=== PATIENT | female | born 1975 | race Caucasian/White ===

== ENCOUNTER → 2016-11-25 | Outpatient (CLI) | payer MEDICAID, BC ==
[2016-11-25 09:14] LABS: ALT 38 U/L (9-52); AST 17 U/L (14-36); Alkaline Phosphatase 71 U/L (38-126); Anion Gap 8 mmol/L; Blood Urea Nitrogen 13 mg/dL (7-17); Calcium 9.1 mg/dL (8.4-10.2); Carbon Dioxide 27 mmol/L (22-30); Chloride 106 mmol/L (98-107); Cholesterol 203 mg/dL (<200); Glucose 87 mg/dL (74-99); HDL Cholesterol 44 mg/dL (40-60); Non-African American GFR(MDRD) >60 (>60 ml/min/1.73 sqM); Potassium 4.4 mmol/L (3.5-5.1); Sodium 141 mmol/L (137-145); Total Bilirubin 0.3 mg/dL (0.2-1.3); Triglycerides 68 mg/dL (<150)
[2016-11-25 09:32] LABS: Total Protein 6.7 g/dL (6.3-8.2)
== END | disposition home or self-care (01) ==
LOC: LABWHC1 08:15
PROVIDERS: ATTEND Family Medicine
DX: E78.5 Hyperlipidemia, unspecified (principal); I10 Essential (primary) hypertension
CPT/HCPCS: 36415; 80053; 80061

== ENCOUNTER → 2016-11-25 | Outpatient (CLI) | payer MEDICAID, BC ==
[2016-11-25 08:53] LABS: Basophils % (A) 0 %; CH 31.2; CHCM 33.6; Eosinophils # (A) 0.2 k/uL (0-0.7); Eosinophils % (A) 3 %; HDW 2.37; HGB 14.4 gm/dL (11.4-16.0); Luc # (Auto) 0.08; Luc % (Auto) 1; Lymphocytes # (A) 1.8 k/uL (1.0-4.8); Lymphocytes % (A) 27 %; MCH 31.2 pg (25.0-35.0); MCHC 33.4 g/dL (31.0-37.0); MCV 93.3 fL (80.0-100.0); Mean Platelet Volume 7.8; Monocytes # (A) 0.3 k/uL (0-1.0); Monocytes % (A) 4 %; Neutrophils # (A) 4.2 k/uL (1.3-7.7); Neutrophils % (A) 64 %; RDW 13.3 % (11.5-15.5); WBC 6.5 k/uL (3.8-10.6)
== END | disposition home or self-care (01) ==
LOC: LABPAT 08:12
PROVIDERS: ATTEND Family Medicine
DX: Z01.812 Encounter for preprocedural laboratory examination (principal)
CPT/HCPCS: 85025

== ENCOUNTER 2016-12-02 05:52 | Day surgery (SDC) | payer MEDICAID, BC ==
[2016-11-25 11:34] VITALS: BMI 27.3
[~2016-12-02 05:52] MED LIST: DEXAMETHASONE SOD PHOSPHATE 10 MG/ML 1 ML VIAL IV ONE; LIDOCAINE 1% 20 ML VIAL (10MG/ML) FOR IV START INTRADERMA PRN; ONDANSETRON 4 MG/2 ML VIAL IVP ONE; SCOPOLAMINE 1.5MG/72HR PATCH TRANSDERM ONE; ceFAZolin 2 GM in SODIUM CHLORIDE 0.9% 100 ML IVPB ONE
[2016-12-02] MEDS: LACTATED RINGERS 1,000 ML IV SCH (06:48)
[2016-12-02] MEDS ORDERED: BUPIVACAINE (PF) 0.25% 30 ML VIAL SQ ONE ×2 (07:29→08:03)
--- NOTE | 2016-12-02 07:29 | P.HPOB ---
History of Present Illness H&P Date: 12/02/16 Chief Complaint: Menorrhagia: Failed NovaSure Patient is a 41-year-old female who underwent a NovaSure ablation for menorrhagia but has had no significant symptomatic relief. She reports that she has very heavy bleeding each cycle and it is severely limits her ability to function normally. The bleeding has gotten to the point where she cannot valves during her heaviest bleeding and she is therefore requesting a more permanent solution. Risks/benefits/alternatives to a robotic-assisted laparoscopic hysterectomy possible CONSTANCE possible BSO were discussed with the patient in detail. These did include but were not limited to damage to bladder , bowel, vascular injuries, nerve damage, vessel injuries, ureteral damage. Other than her NovaSure she has had no other abdominal surgeries. On physical exam vital signs are stable and afebrile. Heart regular, lungs clear, extremities without pain. Osteopathic exams unremarkable. Abdominal exam is unremarkable. Positive bowel sounds are noted. Pelvic exam is generally speaking unremarkable. Assessment menorrhagia failed ablation. Plan-da ender assisted hysterectomy Past Medical History Past Medical History: Asthma, Hyperlipidemia, Hypertension Additional Past Medical History / Comment(s): ASTHMA UNDER CONTROL History of Any Multi-Drug Resistant Organisms: None Reported Past Surgical History: Tubal Ligation, Uterine Ablation Additional Past Surgical History / Comment(s): SINUS SX X 3 Past Anesthesia/Blood Transfusion Reactions: Previous Problems w/ Anesthesia, Postoperative Nausea & Vomiting (PONV) Additional Past Anesthesia/Blood Transfusion Reaction / Comment(s): WOKE UP DURING ONE OF HER SINUS SURGERIES Smoking Status: Never smoker - Past Family History Mother Family Medical History: No Reported History Medications and Allergies Home Medications Medication Instructions Recorded Confirmed Type Atorvastatin [Lipitor] 10 mg PO DAILY 11/25/16 11/25/16 History Desvenlafaxine Succinate [Pristiq] 50 mg PO DAILY 11/25/16 11/25/16 History amLODIPine BESYLATE/BENAZEPRIL 1 each PO DAILY 11/25/16 11/25/16 History [Lotrel 5-10 mg Capsule] Allergies Allergy/AdvReac Type Severity Reaction Status Date / Time aspirin Allergy Anaphylaxis Verified 11/25/16 11:25 Exam Osteopathic Statement: *. No significant issues noted on an osteopathic structural exam other than those noted in the History and Physical/Consult. - Vital Signs Vital signs: Vital Signs Temp Pulse Resp BP Pulse Ox 12/02/16 06:23 97.5 F L 89 16 133/77 96
[2016-12-02] MEDS ORDERED: ONDANSETRON 4 MG/2 ML VIAL IVP PRN (08:51)
[2016-12-02] MEDS ORDERED: Acetaminophen-Codeine 300-30mg TAB PO PRN (08:51)
--- NOTE | 2016-12-02 08:58 | P.OP ---
Date of Procedure: 12/02/16 Preoperative Diagnosis: menorrhagia: Failed ablation Postoperative Diagnosis: Same Procedure(s) Performed: Robotic-assisted laparoscopic hysterectomy Implants: Anesthesia: TAMIKA Surgeon: Davey Yeboah Nuclear Equipment Sales Engineer #1: Minnie Marinelli Estimated Blood Loss (ml): 25 IV fluids (ml): 600 Urine output (ml): 250 Pathology: other (uterus and cervix) Condition: stable Disposition: floor Indications for Procedure: Operative Findings: no gross pathology Description of Procedure: Patient was taken to the operating suite where a general anesthetic was found to be adequate. She was prepped and draped in the normal sterile fashion and placed in the dorsal lithotomy position. Initially a weighted speculum was inserted into the vagina and the anterior lip of the cervix was identified and grasped with a single-tooth tenaculum. 2 sutures were placed at 3/9 hands clock position. Cervix was then dilated and sounded to 10 cm. Cup size with 3 cm. Lesli manipulator was then inserted without difficulty and Lowery catheter was placed and gloves were changed. Other instruments were removed from the vagina. Attention was then turned to the abdominal portion of the procedure where 2 mL of quarter percent Marcaine were injected 2 cm above the umbilicus. Through this anesthetic a 8 mm skin incision was made and through this incision with direct visualization the port and sleeve were inserted. Once peritoneal placement was assured gas was allowed to fully insufflate the abdomen and patient was then placed in a very steep Trendelenburg position. 2 lateral ports were then placed approximately 10 cm lateral to the umbilicus and then a fourth port and sleeve was inserted between the left lateral and the medial port. Camera port was then exchanged for a robotic port. Robot was then brought in and docked. With a scissor and the one arm and a [place] grasper in the 2 arm I did break scrub and go to the console. Uterus was then elevated and observations pelvis were made. Uterus is noted be slightly enlarged ovaries appeared normal. Initially the left utero-ovarian ligament was identified cauterized and cut broad ligament tissues were then cauterized and cut to the round ligament and round ligament was also cauterized and cut. Anterior and posterior leafs of the broad ligament were then developed slit skeletonization of vascularity could be made. Vasculature was then cauterized on the left and then undermining the bladder flap was done by using the Metzenbaum to incise the tissues but the [place] grasper elevated. This was carried across face of the uterus and the bladder flap was created. Once this was accomplished attention was turned to the right side of the uterus which in a similar fashion was developed. Balloon was then blown up in the Lesli manipulator and uterus was pushed all the way in cup was identified and anterior colpotomy was made. Once this was accomplished cheating head when necessary to maintain excellent hemostasis follow the couple around with the scissor until 3 and 60 was made. Once this was accomplished uterus was brought into the vagina to maintain pneumoperitoneum and hemostasis of the pedicles was assured. Once this was accomplished instrument's were exchanged for [employer]rological grasper and a make suture cut and using to OB lock suture the vaginal cuff was closed. Once this was fully accomplished pelvis was irrigated seeing no bleeding from the pedicles instruments were removed and gas was allowed to expel from the abdomen. 4 deep breaths were provided during this process and at this point I did do a cystoscopy to and good flow was noted from both ureteral jets and Dr. Marinelli did close the incisions subcuticularly. The remaining 8 mL of quarter percent Marcaine was then injected around these incisions. Sponge, lap, needle counts were all correct 2. Patient was taken to the recovery room in stable and satisfactory condition.
[2016-12-02] MEDS: HYDROmorphone 1 MG/ML 1 ML SYRINGE IVP PRN ×5 (09:27→09:43)
[2016-12-02] MEDS ORDERED: LACTATED RINGERS 1,000 ML IV ONE (09:43)
[2016-12-02] MEDS ORDERED: MEPERIDINE 50 MG/ML SYRINGE IVP ONE (09:47)
[2016-12-02] MEDS: Acetaminophen-Codeine 300-30mg TAB PO PRN ×2 (14:01→20:39)
[2016-12-03] MEDS: LACTATED RINGERS 1,000 ML IV SCH (00:14)
[2016-12-03] MEDS: Acetaminophen-Codeine 300-30mg TAB PO PRN ×2 (03:26→09:33)
[2016-12-03 08:47] VITALS: BP 122/71; PULSE 61; RESP 19; TEMP 97.6
--- NOTE | 2016-12-03 08:55 | P.DS ---
Providers Expected date of discharge: 12/03/16 Attending physician: Davey Yeboah Primary care physician: Wilfrido Morales [facility] Course: Patient is doing very well postop day 1. She is ambulating, voiding, and she is tolerating her diet. She is passed flatus. Vital signs are stable and afebrile. Heart regular, lungs clear, extremities without pain. Abdomen soft incisions are intact. Assessment postop day 1. Plan discharged home follow up with me in 1 day. Discharge structures thoroughly reviewed and prescription for Tylenol No. 3 has been provided. All the questions are answered for her prior to her discharge. Patient Condition at Discharge: Good Plan - Discharge Summary New Discharge Prescriptions: New Acetaminophen-Codeine 300-30mg [Tylenol #3] 1 tab PO Q4H PRN #30 tablet PRN Reason: Pain No Action Atorvastatin [Lipitor] 10 mg PO DAILY amLODIPine BESYLATE/BENAZEPRIL [Lotrel 5-10 mg Capsule] 1 each PO DAILY Desvenlafaxine Succinate [Pristiq] 50 mg PO DAILY Discharge Medication List Atorvastatin [Lipitor] 10 mg PO DAILY 11/25/16 [History] Desvenlafaxine Succinate [Pristiq] 50 mg PO DAILY 11/25/16 [History] amLODIPine BESYLATE/BENAZEPRIL [Lotrel 5-10 mg Capsule] 1 each PO DAILY [History] Acetaminophen-Codeine 300-30mg [Tylenol #3] 1 tab PO Q4H PRN #30 tablet [Rx] Follow up Appointment(s)/Referral(s): Davey Yeboah DO [Doctor of Osteopathic Medicine] - 1 Week Activity/Diet/Wound Care/Special Instructions: No heavy lifting, limit stairs and driving, and pelvic rest. If any high temperatures, heavy bleeding, or severe pain call my office
== END 2016-12-03 10:25 | disposition home or self-care (01) ==
LOC: OR 05:52 → 6PED 08:52 → OR 12-03 10:25
PROVIDERS: ATTEND Obstetrics & Gynecology
DX: D25.9 Leiomyoma of uterus, unspecified (principal); J45.909 Unspecified asthma, uncomplicated; E78.5 Hyperlipidemia, unspecified; I10 Essential (primary) hypertension; Z98.51 Tubal ligation status; Z79.899 Other long term (current) drug therapy; Z88.6 Allergy status to analgesic agent; N72 Inflammatory disease of cervix uteri
CPT/HCPCS: 81025; 86900; 86901; 86850; 88307; 58550; J1100; J2175; J0690; J2405; J1170

== ENCOUNTER → 2018-06-25 | Outpatient (CLI) | payer MEDICAID ==
[2018-06-25 16:31] LABS: Basophils % (A) 0 %; Eosinophils # (A) 0.1 k/uL (0-0.7); Eosinophils % (A) 1 %; HCT 46.7 % (34.0-46.0); HGB 15.1 gm/dL (11.4-16.0); Lymphocytes # (A) 1.9 k/uL (1.0-4.8); Lymphocytes % (A) 30 %; MCH 30.6 pg (25.0-35.0); MCHC 32.2 g/dL (31.0-37.0); Mean Platelet Volume 8.7; Monocytes # (A) 0.4 k/uL (0-1.0); Monocytes % (A) 6 %; Neutrophils # (A) 3.9 k/uL (1.3-7.7); Neutrophils % (A) 61 %; Platelet Count 184 k/uL (150-450); RBC 4.92 m/uL (3.80-5.40); RDW 13.4 % (11.5-15.5); WBC 6.4 k/uL (3.8-10.6)
[2018-06-25 16:43] LABS: Potassium 4.3 mmol/L (3.5-5.1)
[2018-06-25 16:44] LABS: ALT 37 U/L (9-52); AST 23 U/L (14-36); Albumin 4.7 g/dL (3.5-5.0); Alkaline Phosphatase 80 U/L (38-126); Anion Gap 11 mmol/L; Blood Urea Nitrogen 9 mg/dL (7-17); Calcium 9.6 mg/dL (8.4-10.2); Carbon Dioxide 25 mmol/L (22-30); Chloride 104 mmol/L (98-107); Cholesterol 237 mg/dL (<200); Glucose 94 mg/dL (74-99); HDL Cholesterol 37 mg/dL (40-60); LDL Cholesterol,Calculated 181 mg/dL (0-99); Sodium 140 mmol/L (137-145); Total Bilirubin 0.6 mg/dL (0.2-1.3); Total Protein 7.9 g/dL (6.3-8.2); Triglycerides 94 mg/dL (<150)
[2018-06-25 16:59] LABS: T4, Free (Free Thyroxine) 1.04 ng/dL (0.78-2.19)
[2018-06-25 23:16] LABS: Hemoglobin A1C 5.3 % (4.0-6.0)
[2018-06-25 23:42] LABS: Vitamin D 25 Hydroxy 25.4 ng/mL (30.0-100.0)
--- NOTE | 2018-06-26 09:13 | MM ---
Reason for exam: screening (asymptomatic). Last mammogram was performed 6 years and 2 months ago. History: Family history of breast cancer in maternal aunt at age 40 and breast cancer in maternal grandmother at age 40. Physical Findings: A clinical breast exam by your physician is recommended on an annual basis and results should be correlated with mammographic findings. MG 3D Screening Mammo W/Cad Bilateral CC and MLO view(s) were taken. Prior study comparison: April 21, 2012, bilateral digital screening mammo w/CAD. August 26, 2006, bilateral screening mammogram w/CAD. The breast tissue is heterogeneously dense. This may lower the sensitivity of mammography. No suspicious abnormality. No significant changes when compared with prior studies. ASSESSMENT: Negative, BI-RAD 1 RECOMMENDATION: Routine screening mammogram of both breasts in 1 year.
== END | disposition home or self-care (01) ==
LOC: RADMAMWWP 14:41
PROVIDERS: ATTEND Family Medicine
DX: Z12.31 Encounter for screening mammogram for malignant neoplasm of breast (principal); I10 Essential (primary) hypertension; Z00.00 Encounter for general adult medical examination without abnormal findings
CPT/HCPCS: 77063; 77067; 80053; 80061; 82306; 82607; 83036; 84439; 84443; 85025

== ENCOUNTER 2018-06-27 15:05 | Inpatient (IN) | payer MEDICAID ==
--- NOTE | 2018-06-27 16:02 | ED ---
General Adult HPI - General Chief complaint: Psychiatric Symptoms Stated complaint: Mental Health Time Seen by Provider: 06/27/18 15:31 Source: patient, RN notes reviewed Mode of arrival: ambulatory Limitations: no limitations - History of Present Illness Initial comments: Patient is a pleasant 43-year-old female presenting to the emergency Department with friends with complaints of depression and suicidal thoughts. Patient recently filed for divorce and is having depression regarding this. Patient has had some suicidal thoughts with the past few days. Patient was drinking with friends last night and took some of her friend's medication. This includes Mirapex and Celexa and Ambien. Patient is unclear exactly how many. Patient did not feel well this morning. Patient is feeling better at this point. No street drug use. No physical complaints. No hallucinations. No homicidal thoughts. - Related Data Home Medications Medication Instructions Recorded Confirmed Atorvastatin [Lipitor] 10 mg PO DAILY 11/25/16 12/02/16 Desvenlafaxine Succinate [Pristiq] 50 mg PO DAILY 11/25/16 12/02/16 amLODIPine BESYLATE/BENAZEPRIL 1 each PO DAILY 11/25/16 12/02/16 [Lotrel 5-10 mg Capsule] Previous Rx's Medication Instructions Recorded Acetaminophen-Codeine 300-30mg 1 tab PO Q4H PRN #30 tablet 12/03/16 [Tylenol #3] Allergies Allergy/AdvReac Type Severity Reaction Status Date / Time aspirin Allergy Anaphylaxis Verified 06/27/18 15:23 Review of Systems ROS Statement: Those systems with pertinent positive or pertinent negative responses have been documented in the HPI. ROS Other: All systems not noted in ROS Statement are negative. Constitutional: Denies: fever Eyes: Denies: eye pain ENT: Denies: ear pain Respiratory: Denies: cough Cardiovascular: Denies: chest pain Endocrine: Denies: fatigue Gastrointestinal: Denies: abdominal pain Genitourinary: Denies: dysuria Musculoskeletal: Denies: back pain Skin: Denies: rash Neurological: Denies: weakness Psychiatric: Reports: depression, suicidal thoughts Past Medical History Past Medical History: No Reported History History of Any Multi-Drug Resistant Organisms: None Reported Past Surgical History: Ablation, Hysterectomy Additional Past Surgical History / Comment(s): sinus sugery Past Psychological History: Anxiety Smoking Status: Never smoker Past Alcohol Use History: Occasional Past Drug Use History: None Reported General Exam Limitations: no limitations General appearance: alert, in no apparent distress Head exam: Present: atraumatic Eye exam: Present: normal appearance, PERRL, EOMI. Absent: nystagmus ENT exam: Present: normal oropharynx Neck exam: Present: normal inspection Respiratory exam: Present: normal lung sounds bilaterally Cardiovascular Exam: Present: regular rate, normal rhythm GI/Abdominal exam: Present: soft. Absent: tenderness Extremities exam: Present: normal inspection Neurological exam: Present: alert. Absent: motor sensory deficit Psychiatric exam: Present: depressed Skin exam: Present: normal color. Absent: rash Course Vital Signs 06/27/18 06/27/18 06/27/18 15:18 16:31 17:49 Temperature 97.9 F 98.5 F Pulse Rate 111 H 105 H 92 Respiratory 18 18 18 Rate Blood Pressure 137/82 141/90 126/84 O2 Sat by Pulse 97 98 98 Oximetry EKG Findings - EKG Comments: EKG Findings:: Normal sinus rhythm and 99. ID 132. QRS 82. QT 340. QTc 436. Normal axis. Normal QRS. No acute ST change. Medical Decision Making - Medical Decision Making Mental health services did see patient with plans for admission. - Lab Data Result diagrams: 06/27/18 16:33 06/27/18 16:33 Lab Results 06/27/18 06/27/18 06/27/18 Range/Units 16:33 16:33 16:33 WBC 13.3 H (3.8-10.6) k/uL RBC 4.65 (3.80-5.40) m/uL Hgb 14.7 (11.4-16.0) gm/dL Hct 42.6 (34.0-46.0) % MCV 91.6 (80.0-100.0) fL MCH 31.7 (25.0-35.0) pg MCHC 34.6 (31.0-37.0) g/dL RDW 13.2 (11.5-15.5) % Plt Count 190 (150-450) k/uL Neutrophils % 86 % Lymphocytes % 8 % Monocytes % 3 % Eosinophils % 2 % Basophils % 0 % Neutrophils # 11.4 H (1.3-7.7) k/uL Lymphocytes # 1.1 (1.0-4.8) k/uL Monocytes # 0.5 (0-1.0) k/uL Eosinophils # 0.2 (0-0.7) k/uL Basophils # 0.0 (0-0.2) k/uL PT 10.5 (9.0-12.0) sec INR 1.0 (<1.2) APTT 22.6 (22.0-30.0) sec Sodium 140 (137-145) mmol/L Potassium 4.4 (3.5-5.1) mmol/L Chloride 105 (98-107) mmol/L Carbon Dioxide 24 (22-30) mmol/L Anion Gap 11 mmol/L BUN 7 (7-17) mg/dL Creatinine 0.62 (0.52-1.04) mg/dL Est GFR (CKD-EPI)AfAm >90 (>60 ml/min/1.73 sqM) Est GFR (CKD-EPI)NonAf >90 (>60 ml/min/1.73 sqM) Glucose 109 H (74-99) mg/dL Calcium 9.7 (8.4-10.2) mg/dL Total Bilirubin 0.8 (0.2-1.3) mg/dL AST 18 (14-36) U/L ALT 39 (9-52) U/L Alkaline Phosphatase 82 (38-126) U/L Total Protein 7.4 (6.3-8.2) g/dL Albumin 4.5 (3.5-5.0) g/dL Salicylates <1.0 mg/dL Acetaminophen <10.0 ug/mL Serum Alcohol <10 mg/dL Disposition Clinical Impression: Depression, Suicidal ideation Disposition: TRANSFER TO PSYCH HOSP/UNIT Is patient prescribed a controlled substance at d/c from ED?: No Referrals: Wilfrido Morales DO [Primary Care Provider] - 1-2 days Decision Time: 18:30
[2018-06-27 16:53] LABS: Basophils % (A) 0 %; Eosinophils # (A) 0.2 k/uL (0-0.7); Eosinophils % (A) 2 %; HCT 42.6 % (34.0-46.0); HGB 14.7 gm/dL (11.4-16.0); Lymphocytes # (A) 1.1 k/uL (1.0-4.8); Lymphocytes % (A) 8 %; MCH 31.7 pg (25.0-35.0); MCHC 34.6 g/dL (31.0-37.0); MCV 91.6 fL (80.0-100.0); Mean Platelet Volume 8.2; Monocytes # (A) 0.5 k/uL (0-1.0); Monocytes % (A) 3 %; Neutrophils # (A) 11.4 k/uL (1.3-7.7); Neutrophils % (A) 86 %; Platelet Count 190 k/uL (150-450); RBC 4.65 m/uL (3.80-5.40); RDW 13.2 % (11.5-15.5); WBC 13.3 k/uL (3.8-10.6)
[2018-06-27 17:03] LABS: Partial Thromboplastin Time 22.6 sec (22.0-30.0); Prothrombin Time 10.5 sec (9.0-12.0)
[2018-06-27 17:07] LABS: ALT 39 U/L (9-52); AST 18 U/L (14-36); Acetaminophen <10.0 ug/mL; Albumin 4.5 g/dL (3.5-5.0); Alcohol <10 mg/dL; Alkaline Phosphatase 82 U/L (38-126); Anion Gap 11 mmol/L; Blood Urea Nitrogen 7 mg/dL (7-17); Calcium 9.7 mg/dL (8.4-10.2); Carbon Dioxide 24 mmol/L (22-30); Chloride 105 mmol/L (98-107); Glucose 109 mg/dL (74-99); Potassium 4.4 mmol/L (3.5-5.1); Salicylate <1.0 mg/dL; Sodium 140 mmol/L (137-145); Total Bilirubin 0.8 mg/dL (0.2-1.3); Total Protein 7.4 g/dL (6.3-8.2)
[2018-06-28] MEDS ORDERED: LORazepam 1 MG TAB PO PRN (01:25)
[2018-06-28] MEDS ORDERED: ZIPRASIDONE 20 MG VIAL IM PRN (01:25)
[2018-06-28] MEDS ORDERED: MAGNESIUM HYDROXIDE 2,400 MG/10 ML CUP PO PRN (01:25)
[2018-06-28] MEDS ORDERED: MAG HYDROX/AL HYDROX/SIMETH 30 ML CUP PO PRN (01:25)
[2018-06-28] MEDS ORDERED: ACETAMINOPHEN TAB 325 MG TAB PO PRN (01:25)
[2018-06-28 04:30] VITALS: BMI 28.5
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
--- NOTE | 2018-06-28 13:23 | P.CON ---
Consult Note - . Consult date: 06/28/18 Assessment/Plan:: Reason for consultation-advise regarding hypertension and hyperlipidemia History of present illness This is a very pleasant 43-year-old female with a past paresis significant for depression, GERD, she said that she had hypertension before but she's not taking medications any more as a blood pressure has stabilized. She also has a history of hyperlipidemia and not the any medications for that. She is admitted to the psychiatric unit for intentional overdose of 75 pulse of Ambien and Celexa and Ativan. Her life. Patient very tearful at the time examination. She has some family situations and marital conflicts a and she is stressed about it. She otherwise does not complain of any chest pain, racing heart, no abdominal pain, nausea and vomiting, or diarrhea constipation, no tingling numbness on in the extremities, no itch no rash. She does not complain of any lightheadedness no dizziness, and no itch or rash. Past medical history - History of hypertension but normotensive now not on any medications - History of hyperlipidemia - History of depression - History of JEANNA Past surgical history - Hysterectomy Family history - Noncontributory Social history - No smoking - Drinks alcohol socially on weekends - No history of drug abuse Physical exam Vitals-temperature 98.2 pulse 94 blood pressure 136/83 respiration 16 HEENT-head atraumatic normocephalic PERRLA no pallor no icterus, no pain or discharge from ear nose Throat-no erythema no exudate Neck-no JVD, no neck enlargement, no thyroid enlargement CVS-S1-S2 positive. Tachycardic Respiration-normal breath sounds are equally Abdomen-soft nontender bowel sounds present Axlbi-[id number]-[id number] nerves 2 -12 intact, reflexes 2 positive all extremities, strength of a postural Ixodes Extremities-no edema pulses positive Impression - Suicide intent - Depression and anxiety - History of hypertension now normotensive - History of hyperlipidemia Plan - Patient is admitted under psychiatric unit - Patient seems VITALLY stable is now including a blood pressure - We will continue to monitor the blood pressure and if high, will need to evaluate her for possible blood pressure medications - Monitor the patient for now - Outpatient workup for hyperlipidemia - We will follow the patient has and when needed
[2018-06-28] MEDS: FLUoxetine HCL 20 MG CAP PO SCH (13:39)
[2018-06-28] MEDS: busPIRone HCl 5 MG TAB PO SCH (22:34)
[2018-06-29] MEDS: FLUoxetine HCL 20 MG CAP PO SCH (08:22)
[2018-06-29] MEDS: busPIRone HCl 5 MG TAB PO SCH (08:22)
[2018-06-29 09:52] LABS: Albumin 4.2 g/dL (3.5-5.0); Bilirubin, Delta 0.2 mg/dL (0.0-0.2); Bilirubin,Unconjugated 0.4 mg/dL (0.0-1.1); Total Bilirubin 0.6 mg/dL (0.2-1.3)
[2018-06-29 12:15] LABS: Hemoglobin A1C 5.4 % (4.0-6.0)
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
[2018-06-30] MEDS: FLUoxetine HCL 10 MG CAP PO SCH (09:33)
[2018-07-01 07:04] VITALS: BP 113/52; PULSE 52; RESP 18; TEMP 97.7
[2018-07-01] MEDS: FLUoxetine HCL 10 MG CAP PO SCH (08:12)
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
== END 2018-07-01 12:42 | disposition home or self-care (01) | DRG 885 ==
LOC: EC 15:05 → 3MHU 20:20
PROVIDERS: ADMIT Psychiatry & Neurology Psychiatry; ATTEND Psychiatry & Neurology Psychiatry
DX: F33.2 Major depressive disorder, recurrent severe without psychotic features (principal); E78.5 Hyperlipidemia, unspecified; F41.1 Generalized anxiety disorder; I10 Essential (primary) hypertension; K21.9 Gastro-esophageal reflux disease without esophagitis; T42.4X2A Poisoning by benzodiazepines, intentional self-harm, initial encounter; T42.6X2A Poisoning by other antiepileptic and sedative-hypnotic drugs, intentional self-harm, initial encounter; Z90.710 Acquired absence of both cervix and uterus; Z63.5 Disruption of family by separation and divorce; Z79.899 Other long term (current) drug therapy; Z88.6 Allergy status to analgesic agent
CPT/HCPCS: 36415; 80053; 80061; 80076; 80320; 82075; 83036; 83520; 84443; 85025; 85610; 85730; 93005; 99285

== ENCOUNTER → 2020-05-19 | Outpatient (CLI) | payer MEDICAID ==
--- NOTE | 2020-05-23 08:50 | MM ---
Reason for exam: screening (asymptomatic). Last mammogram was performed 1 year and 11 months ago. History: Family history of breast cancer in maternal aunt at age 40 and breast cancer in maternal grandmother at age 40. Physical Findings: A clinical breast exam by your physician is recommended on an annual basis and results should be correlated with mammographic findings. MG 3D Screening Mammo W/Cad Bilateral CC and MLO view(s) were taken. Prior study comparison: June 25, 2018, bilateral MG 3d screening mammo w/cad. The breast tissue is heterogeneously dense. This may lower the sensitivity of mammography. No significant changes when compared with prior studies. ASSESSMENT: Negative, BI-RAD 1 RECOMMENDATION: Routine screening mammogram of both breasts in 1 year.
== END | disposition home or self-care (01) ==
LOC: RADMAMWWP 13:48
PROVIDERS: ATTEND Family Medicine
DX: Z12.31 Encounter for screening mammogram for malignant neoplasm of breast (principal)
CPT/HCPCS: 77063; 77067

== ENCOUNTER → 2020-11-10 | Outpatient (CLI) | payer MEDICAID ==
--- NOTE | 2020-11-10 12:52 | MM ---
Reason for exam: clinical finding. Last mammogram was performed 6 months ago. History: Family history of breast cancer in maternal aunt at age 40 and breast cancer in maternal grandmother at age 40. Took hormonal contraceptives for 10 years. Physical Findings: Nurse Summary: redness and thickening 3-6 o'clock left breast x 5 days (nurse marlen). MG 3D Diag Mammo W/Cad LUCINA Bilateral CC and MLO view(s) were taken. Prior study comparison: May 19, 2020, bilateral MG 3d screening mammo w/cad. June 25, 2018, bilateral MG 3d screening mammo w/cad. Left increased parenchymal focal asymmetry. No discrete nodule or mass. Recommend left ultrasound. These results were verbally communicated with the patient and result sheet given to the patient on 11/10/20. ASSESSMENT: Incomplete: need additional imaging evaluation, BI-RAD 0 RECOMMENDATION: Ultrasound of the left breast.
--- NOTE | 2020-11-10 12:57 | USB ---
Reason for exam: additional evaluation requested from abnormal screening. History: Family history of breast cancer in maternal aunt at age 40 and breast cancer in maternal grandmother at age 40. Took hormonal contraceptives for 10 years. US Breast LT Left complete breast ultrasound includes all four quadrants, the retroareolar region and axilla. Finding demonstrates a 3mm lymph node at 3 o'clock, likely reactive intramammary lymph node, 15 x 5 x 12mm oval, mixed lesion at 3 o'clock, fibrocystic change, probably benign, benign appearing duct ectasia at the posterior nipple, a 6mm and 11mm oval lymph node at the axilla tail, probably reactive lymph node. These results were verbally communicated with the patient and result sheet given to the patient on 11/10/20. ASSESSMENT: Probably benign, BI-RAD 3 RECOMMENDATION: Follow-up diagnostic mammogram and ultrasound of the left breast in 1 month.
== END | disposition home or self-care (01) ==
LOC: RADMAMWWP 10:54
PROVIDERS: ATTEND Obstetrics & Gynecology
DX: N64.4 Mastodynia (principal)
CPT/HCPCS: 77062; 77066

== ENCOUNTER → 2021-06-29 | Outpatient (CLI) | payer MEDICAID ==
--- NOTE | 2021-06-30 18:59 | US ---
EXAMINATION TYPE: US transvaginal DATE OF EXAM: 06/29/2021 COMPARISON: NONE CLINICAL HISTORY: Vaginal bleeding x 1 week, history of hysterectomy TECHNIQUE: Transvaginal exam only per ordering physician Date of LMP: 6 years ago EXAM MEASUREMENTS: Right Ovary: 2.1 x 1.9 x 1.9 cm Left Ovary: 2.8 x 1.9 x 1.8 cm 1. Uterus: Nonvisualized 2. Right Ovary: wnl 3. Left Ovary: 1.9 x 1.2 x 1.7cm hypoechoic area 4. Bilateral Adnexa: wnl 5. Posterior cul-de-sac: small amount of fluid IMPRESSION: 1. Surgically absent uterus. 2. No adnexal mass seen. 3. Hypoechoic mildly thick walled cyst in the left ovary differential would include a corpus luteum o r hemorrhagic cyst. Repeat Ultrasound in 2-3 months may be beneficial.
== END | disposition home or self-care (01) ==
LOC: RADUSWWP 15:24
PROVIDERS: ATTEND Obstetrics & Gynecology
DX: N93.9 Abnormal uterine and vaginal bleeding, unspecified (principal); Z90.710 Acquired absence of both cervix and uterus
CPT/HCPCS: 76830

== ENCOUNTER 2021-10-29 18:27 | Emergency (ER) | payer MEDICAID ==
[2021-10-29 18:43] VITALS: RESP 18; TEMP 99.9
[2021-10-29] MEDS ORDERED: ONDANSETRON ODT 4 MG TAB PO STA (19:07)
[2021-10-29] MEDS ORDERED: ACETAMINOPHEN TAB 500 MG TAB PO STA (19:07)
--- NOTE | 2021-10-29 19:11 | ED ---
ENT HPI - General Chief complaint: ENT Stated complaint: Covid symptoms Time Seen by Provider: 10/29/21 19:00 Source: patient, family, RN notes reviewed Mode of arrival: wheelchair Limitations: no limitations - History of Present Illness Initial comments: This is a 46-year-old female who presents to the emergency Department with coughing, congestion, chills, and body aches. Symptoms began this morning. States that her boyfriend tested positive for COVID yesterday. She does have a history of asthma, however she is not currently taking any medications and denies any associated shortness of breath. She has not checked her temperature, however she does have chills. If she tests positive, she requests rx for Paxlovid. Patient is very restless in the room, and states that she is also starting to become nauseous. Denies any sore throat, dyspnea, chest pain, palpitations, abdominal pain, vomiting, diarrhea, back pain, or headaches. MD complaint: other (cough, congestion, chills, body aches) - Related Data Previous Rx's Medication Instructions Recorded FLUoxetine HCL [PROzac] 30 mg PO DAILY 30 Days #90 cap 07/01/18 Albuterol Sulfate [Proair Hfa] 1 - 2 puff INHALATION Q6HR PRN 10/29/21 #8.5 gm Nirmatrelvir/Ritonavir [Paxlovid 1 each PO BID 5 Days #10 tab 10/29/21 2X150 mg-100 mg (Eua)] Allergies Allergy/AdvReac Type Severity Reaction Status Date / Time aspirin Allergy Anaphylaxis Verified 11/10/20 11:39 Review of Systems ROS Statement: Those systems with pertinent positive or pertinent negative responses have been documented in the HPI. ROS Other: All systems not noted in ROS Statement are negative. Past Medical History Past Medical History: Asthma Additional Past Medical History / Comment(s): Pt states she has a history of asthma but "I haven't been on medications or an inhaler in years" History of Any Multi-Drug Resistant Organisms: None Reported Past Surgical History: Ablation, Hysterectomy Additional Past Surgical History / Comment(s): sinus sugery Past Anesthesia/Blood Transfusion Reactions: No Reported Reaction Past Psychological History: Anxiety Smoking Status: Never smoker Past Alcohol Use History: Occasional Past Drug Use History: None Reported - Past Family History Mother Family Medical History: Cancer Father Family Medical History: Asthma General Exam Limitations: no limitations General appearance: alert, in distress Head exam: Present: atraumatic, normocephalic, normal inspection ENT exam: Present: normal exam, mucous membranes moist, TM's normal bilaterally, normal external ear exam Neck exam: Present: normal inspection. Absent: tenderness, meningismus, lymphadenopathy Respiratory exam: Present: normal lung sounds bilaterally. Absent: respiratory distress, wheezes, rales, rhonchi, stridor Cardiovascular Exam: Present: regular rate, normal rhythm, normal heart sounds. Absent: systolic murmur, diastolic murmur, rubs, gallop, clicks Neurological exam: Present: alert, oriented X3, CN II-XII intact Psychiatric exam: Present: normal affect, normal mood Skin exam: Present: warm, dry, intact, normal color. Absent: rash Course Vital Signs 10/29/21 10/29/21 18:41 20:28 Temperature 99.9 F H Pulse Rate 111 H 95 Respiratory 18 18 Rate Blood Pressure 133/81 119/69 O2 Sat by Pulse 98 97 Oximetry Medical Decision Making - Medical Decision Making This is a 46-year-old female who presents to the emergency department for chills, body aches, and upper respiratory symptoms. Patient positive for COVID- 19. Tylenol administered in the emergency department for a temperature of 99.9F. Zofran also provided for nausea. Rx for Paxlovid and albuterol inhaler sent to the pharmacy. Instructed her to quarantine for 5 days and practice extra precautions for an additional 5 days, including always wearing a mask around others and avoiding travel. Return precautions reviewed in depth, the patient is instructed to return to the emergency department with any new, worsening, or concerning symptoms. Patient verbalized understanding. This case was discussed in detail with the attending ED physician. Presentation, findings, and treatment plan discussed in detail as well. - Lab Data Lab Results 10/29/21 10/29/21 Range/Units 19:18 19:18 Coronavirus (PCR) Detected A (Not Detectd) Influenza Type A RNA Not Detected (Not Detectd) Influenza Type B (PCR) Not Detected (Not Detectd) Disposition Clinical Impression: COVID-19 Disposition: HOME SELF-CARE Instructions (If sedation given, give patient instructions): Coronavirus Disease 2019 (COVID-19), How to Recover from COVID-19 at Home (ED) Additional Instructions: Return to the emergency department with any new, worsening, or concerning symptoms. Take the Paxlovid as prescribed for 5 days. Quarantine for 5 days and practice extra precautions for an additional 5 days, including always wearing a mask around others and avoiding travel. Prescriptions: Nirmatrelvir/Ritonavir [Paxlovid 2X150 mg-100 mg (Eua)] 1 each PO BID 5 Days #10 tab Albuterol Sulfate [Proair Hfa] 1 - 2 puff INHALATION Q6HR PRN #8.5 gm PRN Reason: Shortness Of Breath Is patient prescribed a controlled substance at d/c from ED?: No Referrals: Wilfrido Morales DO [Primary Care Provider] - 1-2 days
[2021-10-29 20:28] VITALS: BP 119/69; PULSE 95
== END 2021-10-29 20:40 | disposition home or self-care (01) ==
LOC: EC 18:27
DX: U07.1 COVID-19 (principal); J45.909 Unspecified asthma, uncomplicated; Z88.6 Allergy status to analgesic agent
CPT/HCPCS: 87502; 87635

== ENCOUNTER → 2023-02-28 | Outpatient (CLI) | payer MEDICAID ==
--- NOTE | 2023-03-03 01:46 | MM ---
Reason for Exam: Screening (asymptomatic). Last mammogram was performed 2 year(s) and 3 month(s) ago. Patient History: Menarche at age 15. First Full-Term at age 26. Hysterectomy at age 40. Patient used Hormonal Contraceptives for 10 years. Maternal grandmother had breast cancer, age 40. Maternal aunt had breast cancer, age 40. Risk Values: Reny 5 year model risk: 0.7%. NCI Lifetime model risk: 8.6%. Prior Study Comparison: 06/25/2018 Bilateral Screening Mammogram, [facility]. 05/19/2020 Bilateral Screening Mammogram, [facility]. 11/10/2020 Bilateral Diagnostic Mammogram, [facility]. Tissue Density: The breast tissue is heterogeneously dense. This may lower the sensitivity of mammography. Findings: Analyzed By CAD. There is no suspicious group of microcalcifications or new suspicious mass in either breast. Overall Assessment: Negative, BI-RAD 1 Management: Screening Mammogram of both breasts in 1 year. . Patient should continue monthly self-breast exams. A clinical breast exam by your physician is recommended on an annual basis. This exam should not preclude additional follow-up of suspicious palpable abnormalities. Note on Reny scores and lifetime risk: 1. A Reny score greater than 3% is considered moderate risk. If this is the case, consider specialist referral to assess eligibility for a risk reducing agent. 2. If overall lifetime risk for the development of breast cancer is 20% or higher, the patient may qualify for future screening with alternating mammogram and breast MRI. Electronically signed and approved by: Tea Mendoza M.D. Radiologist
== END | disposition home or self-care (01) ==
LOC: RADMAMWWP 06:49
PROVIDERS: ATTEND Obstetrics & Gynecology
DX: Z12.31 Encounter for screening mammogram for malignant neoplasm of breast (principal); Z80.3 Family history of malignant neoplasm of breast
CPT/HCPCS: 77063; 77067

== ENCOUNTER → 2024-06-14 | Outpatient (CLI) | payer BC ==
--- NOTE | 2024-06-14 09:53 | CT ---
EXAMINATION TYPE: CT sinus wo con CT DLP: 622.3 mGycm, Automated exposure control for dose reduction was used. DATE OF EXAM: 06/14/2024 9:38 AM COMPARISON: None. CLINICAL INDICATION:Female, 49 years old with history of J32.4 SINUSITIS; PHH, sinusitis CONTRAST: None. TECHNIQUE: Multiple thin axial images were obtained through the paranasal sinuses without the use of IV contrast. Additional coronal and sagittal reformatted images were submitted for evaluation. FINDINGS: Frontal sinuses: Normally developed. Moderate left and mild mucosal thickening with hyperdensity comp onents. Frontal Recess: Opacified bilaterally Maxillary Sinuses: Normally developed. Near complete opacification of the bilateral maxilla sinuses w ith surrounding hyperostosis. Internal hyperdensity components. Maxillary Infundibula([facility]): Completely opacified bilaterally Ethmoid sinuses: Normally developed. Nearly completely opacified bilaterally with hyperdensity compon ents. Ethmoidal notch: Supraorbital pneumatization is identified. Sphenoid sinuses: Normally developed. Nearly completely opacified bilaterally with hyperdensity compo nents. There is sellar sphenoid sinus pneumatization without evidence of dehiscence. No dehiscence o f carotid canal. No evidence of optic nerve dehiscence within the sphenoid sinus. No evidence of Onod i cells. Sphenoethmoidal recesses: Opacified bilaterally. Nasal septum: Within normal limits.. Nasal Turbinates: Within normal limits. . Mastoid air cells & middle ears: The air cells are clear. The middle ears are grossly unremarkable. C erumen within the right external auditory canal. Modified Soft tissues & Brain: Partially seen without gross abnormality. Globes are intact. Other: Cribriform plate demonstrates symmetric Keros classification type 2 cribriform plate. No evidence of bony dehiscence of skull base. Lamina papyracea is intact without evidence of remote orbital fracture or orbital prolapse into the e thmoid sinus. Left palatine tonsilliths. IMPRESSION: 1. Findings of diffuse severe chronic mucosal sinus disease with hyperdense sinus opacification. Etio logies include fungal sinus disease versus inspissated secretions versus less likely hemorrhage. 2. The ostiomeatal units, frontonasal and sphenoethmoidal recesses are opacified. [facility], , 06/14/2024 9:51 AM
== END | disposition home or self-care (01) ==
LOC: RADCTMAIN 09:15
PROVIDERS: ATTEND Internal Medicine Critical Care Medicine
DX: J32.4 Chronic pansinusitis (principal); J34.89 Other specified disorders of nose and nasal sinuses
CPT/HCPCS: 70486

== ENCOUNTER → 2024-08-16 | Outpatient (CLI) | payer BC ==
--- NOTE | 2024-08-16 16:55 | MM ---
Reason for Exam: Screening (asymptomatic). Last mammogram was performed 1 year(s) and 6 month(s) ago. Patient History: Menarche at age 15. First Full-Term at age 26. Hysterectomy at age 40. Patient has history of breast feeding. Patient used Hormonal Contraceptives for 10 years. Maternal grandmother had breast cancer, age 40. Maternal aunt had breast cancer, age 40. Risk Values: Reny 5 year model risk: 0.8%. NCI Lifetime model risk: 8.4%. Prior Study Comparison: 06/25/2018 Bilateral Screening Mammogram, [facility]. 05/19/2020 Bilateral Screening Mammogram, [facility]. 11/10/2020 Bilateral Diagnostic Mammogram, [facility]. 02/28/2023 Bilateral MG 3D screening mammo w/cad, [facility]. Tissue Density: The breasts are heterogeneously dense, which may obscure small masses. Findings: Analyzed By CAD. There is no suspicious group of microcalcifications or new suspicious mass in either breast. Overall Assessment: Negative, BI-RAD 1 Management: Screening Mammogram of both breasts in 1 year. Patient should continue monthly self-breast exams. A clinical breast exam by your physician is recommended on an annual basis. This exam should not preclude additional follow-up of suspicious palpable abnormalities. Note on Reny scores and lifetime risk: 1. A Reny score greater than 3% is considered moderate risk. If this is the case, consider specialist referral to assess eligibility for a risk reducing agent. 2. If overall lifetime risk for the development of breast cancer is 20% or higher, the patient may qualify for future screening with alternating mammogram and breast MRI. [facility], , 08/16/2024 4:52 PM. Electronically signed and approved by: Tea Mendoza M.D. Radiologist
== END | disposition home or self-care (01) ==
LOC: RADMAMWWP 14:11
PROVIDERS: ATTEND Obstetrics & Gynecology
DX: Z12.31 Encounter for screening mammogram for malignant neoplasm of breast (principal); R92.333 Mammographic heterogeneous density, bilateral breasts; Z80.3 Family history of malignant neoplasm of breast; Z92.0 Personal history of contraception
CPT/HCPCS: 77063; 77067